=== PATIENT | female | born 1935 | race African-American/Black ===

== ENCOUNTER → 2016-07-25 | Outpatient (CLI) | payer MEDICARE, OTHER ==
[~2016-07-25] MED LIST: ALPR1TAB2 PO; BENA10TA3 PO; CLOP75TA28 PO; DEXL60CA3 PO; DICL-176 PO; LEVO75TA42 PO; MULT-777 OR; NOR10T PO; TOLT2CAP7 PO
[2016-07-25 12:44] LABS: Basophils # (auto) 0 uL; Basophils % (auto) 0.4 % (0.0-2.0); Eosinophils # (auto) 0.2 uL; Eosinophils % (auto) 3.6 % (0.0-7.0); Hematocrit 45.4 % (36.0-46.0); Hemoglobin 15.1 g/dL (12.2-16.2); Lymphocytes # (auto) 1.7 uL; Lymphocytes % (auto) 29.9 % (10.0-50.0); Mean Corpuscular Hemoglobin 32.3 pg (28.0-32.0); Mean Corpuscular Hgb Conc. 33.3 g/dL (32.0-36.0); Mean Corpuscular Volume 96.9 fL (80.0-100.0); Mean Platelet Volume 9.7 fL (7.4-10.4); Monocytes # (auto) 0.5 uL; Neutrophils # (auto) 3.2 uL; Neutrophils % (auto) 57.1 % (37.0-80.0); Platelet Count (auto) 233 10^3/uL (140-450); Red Cell Distribution Width 13.7 % (11.6-16.0); White Blood Cell 5.5 10^3/uL (4.4-10.8)
[2016-07-25 13:18] LABS: BUN/Creatinine Ratio 19.7; Bilirubin, Direct 0.2 mg/dL (0-0.2); Bilirubin, Total 0.6 mg/dL (0.2-1.0); Potassium 4.4 mmol/L (3.5-5.1); Total Protein 7.1 g/dL (6.4-8.2)
== END | disposition home or self-care (01) ==
LOC: LAB 09:58
PROVIDERS: ATTEND Internal Medicine Cardiovascular Disease
DX: I10 Essential (primary) hypertension (principal); E78.00 Pure hypercholesterolemia, unspecified; K74.1 Hepatic sclerosis; E11.9 Type 2 diabetes mellitus without complications; E03.9 Hypothyroidism, unspecified; D64.9 Anemia, unspecified; N39.0 Urinary tract infection, site not specified
CPT/HCPCS: 36415; 80048; 80061; 80076; 83036; 84436; 84443; 85025

== ENCOUNTER → 2016-11-15 | Outpatient (CLI) | payer MEDICARE, OTHER ==
[~2016-11-15] MED LIST changes: -BENA10TA3 PO; +BENA10TA9 PO
== END | disposition home or self-care (01) ==
LOC: Rad HDHVI 14:37
PROVIDERS: ATTEND Internal Medicine Cardiovascular Disease
DX: I87.9 Disorder of vein, unspecified (principal); R60.9 Edema, unspecified
CPT/HCPCS: 93970

== ENCOUNTER → 2017-04-17 | Outpatient (CLI) | payer MEDICARE, OTHER ==
[~2017-04-17] MED LIST changes: +DICL75TA2 PO; +FURO40TA PO
== END | disposition home or self-care (01) ==
LOC: Rad HDHVI 09:07
PROVIDERS: ATTEND Internal Medicine Cardiovascular Disease
DX: I50.30 Unspecified diastolic (congestive) heart failure (principal)
CPT/HCPCS: 93306

== ENCOUNTER → 2017-04-21 | Outpatient (CLI) | payer MEDICARE, OTHER ==
[~2017-04-21] VITALS: Ht 177.8 cm; Wt 127.0 kg
[~2017-04-21] MED LIST changes: +ADENOSINE 107 MG in GIVE UN-DILUTED 0 ML IV ONE; +ADENOSINE 90 MG/30 ML INJ IV ONE; -DICL75TA2 PO; -FURO40TA PO
== END ==
LOC: LAB 09:46
PROVIDERS: ATTEND Internal Medicine Cardiovascular Disease
DX: I50.33 Acute on chronic diastolic (congestive) heart failure (principal); L91.0 Hypertrophic scar
CPT/HCPCS: 78452; 93005; 96374; 96375; A9500; J0153

== ENCOUNTER → 2017-06-16 | Outpatient (CLI) | payer MEDICARE, OTHER ==
[~2017-06-16] MED LIST changes: -ADENOSINE 107 MG in GIVE UN-DILUTED 0 ML IV ONE; -ADENOSINE 90 MG/30 ML INJ IV ONE; +DICL75TA2 PO; +FURO40TA PO; +FUROSEMIDE 100 MG/10ML VIAL IV ONE; +FUROSEMIDE 40 MG/4 ML VIAL ONE
[2017-06-16 10:50] VITALS: BP 118/60
[2017-06-16 11:20] VITALS: BP 136/72
[2017-06-16 16:36] LABS: Basophils # (auto) 0 uL; Basophils % (auto) 0.8 % (0.0-2.0); Monocytes # (auto) 0.4 uL; Neutrophils # (auto) 3.7 uL
[2017-06-16 16:39] LABS: Eosinophils # (auto) 0.3 uL; Eosinophils % (auto) 4.7 % (0.0-7.0); Hematocrit 44.2 % (36.0-46.0); Hemoglobin 14.8 g/dL (12.2-16.2); Lymphocytes # (auto) 1.2 uL; Lymphocytes % (auto) 21.1 % (10.0-50.0); Mean Corpuscular Hgb Conc. 33.5 g/dL (32.0-36.0); Mean Corpuscular Volume 101.5 fL (80.0-100.0); Monocytes % (auto) 6.9 % (0.0-12.0); Neutrophils % (auto) 66.5 % (37.0-80.0); Nucleated Red Blood Cells % 0.9 %; Platelet Count (auto) 259 10^3/uL (140-450); Red Blood Cells 4.36 10^6/uL (4.0-5.20); Red Cell Distribution Width 14.2 % (11.8-14.3); White Blood Cell 5.6 10^3/uL (4.4-10.8)
[2017-06-16 17:08] LABS: Magnesium 2.6 mg/dL (1.6-2.6); Potassium 4.3 mmol/L (3.5-5.1)
== END | disposition home or self-care (01) ==
LOC: CHF HDHVI 10:58
PROVIDERS: ATTEND Internal Medicine Cardiovascular Disease
DX: D64.9 Anemia, unspecified (principal); I10 Essential (primary) hypertension; E55.9 Vitamin D deficiency, unspecified; R60.0 Localized edema
CPT/HCPCS: 36415; 80048; 82306; 83735; 85025; 96374; G0463; J1940

== ENCOUNTER → 2017-07-05 | Outpatient (CLI) | payer MEDICARE, OTHER ==
[~2017-07-05] MED LIST changes: -FUROSEMIDE 100 MG/10ML VIAL IV ONE; -FUROSEMIDE 40 MG/4 ML VIAL ONE
== END | disposition home or self-care (01) ==
LOC: Rad HDHVI 10:01
PROVIDERS: ATTEND Internal Medicine Cardiovascular Disease
DX: I73.9 Peripheral vascular disease, unspecified (principal); R60.0 Localized edema
CPT/HCPCS: 93926

== ENCOUNTER → 2017-08-01 | Outpatient (CLI) | payer MEDICARE, OTHER ==
[~2017-08-01] MED LIST changes: +cefTRIAXone 1GM/10ml IVPUSH 10 ML IV ONE
[2017-08-01 11:30] VITALS: BP 129/57
[2017-08-01 12:00] VITALS: BP 129/57
[2017-08-01 13:05] VITALS: BP 124/95
== END | disposition home or self-care (01) ==
LOC: CHF HDHVI 11:40
PROVIDERS: ATTEND Internal Medicine Cardiovascular Disease
DX: L03.115 Cellulitis of right lower limb (principal)
CPT/HCPCS: 96365; G0463

== ENCOUNTER → 2017-08-07 | Outpatient (CLI) | payer MEDICARE, OTHER ==
[~2017-08-07] MED LIST changes: -cefTRIAXone 1GM/10ml IVPUSH 10 ML IV ONE
[2017-08-07 10:30] VITALS: BP 152/65
[2017-08-07 11:20] VITALS: BP 132/67
[2017-08-07 12:06] LABS: Basophils # (auto) 0 uL; Eosinophils # (auto) 0.2 uL; Hemoglobin 14.7 g/dL (12.2-16.2); Lymphocytes # (auto) 1.2 uL; Monocytes # (auto) 0.4 uL; Neutrophils # (auto) 3.6 uL; White Blood Cell 5.4 10^3/uL (4.4-10.8)
[2017-08-07 12:11] LABS: Basophils % (auto) 0.7 % (0.0-2.0); Eosinophils % (auto) 3.7 % (0.0-7.0); Hematocrit 44.2 % (36.0-46.0); Lymphocytes % (auto) 22.4 % (10.0-50.0); Mean Corpuscular Hemoglobin 34.2 pg (28.0-32.0); Mean Corpuscular Hgb Conc. 33.3 g/dL (32.0-36.0); Mean Corpuscular Volume 102.8 fL (80.0-100.0); Neutrophils % (auto) 66.2 % (37.0-80.0); Nucleated Red Blood Cells % 0.6 %; Platelet Count (auto) 213 10^3/uL (140-450); Red Blood Cells 4.29 10^6/uL (4.0-5.20); Red Cell Distribution Width 13.7 % (11.8-14.3)
[2017-08-07 12:19] LABS: INR 0.98 (0.9-1.15); Partial Thromboplastin Time 28.2 sec (22.64-33.71); Prothrombin Time 10.7 sec (9.37-12.3)
[2017-08-07 12:24] LABS: BUN/Creatinine Ratio 14.3; Calcium 8.6 mg/dL (8.5-10.1); Potassium 4.3 mmol/L (3.5-5.1)
== END | disposition home or self-care (01) ==
LOC: Rad HDHVI 10:21
PROVIDERS: ATTEND Internal Medicine Cardiovascular Disease
DX: Z01.818 Encounter for other preprocedural examination (principal); I70.0 Atherosclerosis of aorta; I10 Essential (primary) hypertension; E78.5 Hyperlipidemia, unspecified; I12.9 Hypertensive chronic kidney disease with stage 1 through stage 4 chronic kidney disease, or unspecified chronic kidney disease; E11.22 Type 2 diabetes mellitus with diabetic chronic kidney disease; N18.3 Chronic kidney disease, stage 3 (moderate)
CPT/HCPCS: 36415; 71046; 80048; 85025; 85610; 85730; 93005; G0463

== ENCOUNTER → 2017-08-21 | Outpatient (CLI) | payer MEDICARE, OTHER ==
[~2017-08-21] MED LIST changes: -DICL-176 PO
[2017-08-21 12:00] VITALS: BP 151/92
[2017-08-21 12:35] VITALS: BP 150/90
== END | disposition home or self-care (01) ==
LOC: CHF HDHVI 11:52
PROVIDERS: ATTEND Internal Medicine Cardiovascular Disease
DX: R89.9 Unspecified abnormal finding in specimens from other organs, systems and tissues (principal); I12.9 Hypertensive chronic kidney disease with stage 1 through stage 4 chronic kidney disease, or unspecified chronic kidney disease; E11.22 Type 2 diabetes mellitus with diabetic chronic kidney disease; N18.3 Chronic kidney disease, stage 3 (moderate); E78.5 Hyperlipidemia, unspecified
CPT/HCPCS: 87205; G0463

== ENCOUNTER 2017-09-13 07:09 | Day surgery (SDC) | payer MEDICARE, OTHER ==
[2017-09-04 12:41] LABS: Basophils # (auto) 0 uL; Basophils % (auto) 0.5 % (0.0-2.0); Eosinophils # (auto) 0.3 uL; Hematocrit 43.9 % (36.0-46.0); Hemoglobin 14.4 g/dL (12.2-16.2); Lymphocytes # (auto) 1.3 uL; Lymphocytes % (auto) 25.4 % (10.0-50.0); Mean Corpuscular Hemoglobin 32.9 pg (28.0-32.0); Mean Corpuscular Hgb Conc. 32.8 g/dL (32.0-36.0); Mean Corpuscular Volume 100.3 fL (80.0-100.0); Monocytes # (auto) 0.4 uL; Monocytes % (auto) 7.9 % (0.0-12.0); Neutrophils # (auto) 3.1 uL; Neutrophils % (auto) 61.2 % (37.0-80.0); Nucleated Red Blood Cells % 0.1 %; Platelet Count (auto) 224 10^3/uL (140-450); Red Blood Cells 4.37 10^6/uL (4.0-5.20); Red Cell Distribution Width 13.6 % (11.8-14.3); White Blood Cell 5.1 10^3/uL (4.4-10.8)
[2017-09-04 12:53] LABS: INR 0.99 (0.9-1.15); Prothrombin Time 10.8 sec (9.37-12.3)
[2017-09-04 12:56] LABS: Albumin 3.7 g/dL (3.4-5.0); Potassium 4.5 mmol/L (3.5-5.1)
[2017-09-04 12:58] LABS: BUN/Creatinine Ratio 18.8
[2017-09-04 13:01] LABS: Bilirubin, Total 0.5 mg/dL (0.2-1.0); Total Protein 7.1 g/dL (6.4-8.2)
[~2017-09-13] VITALS: Ht 180.3 cm; Wt 122.5 kg
[~2017-09-13 07:09] MED LIST changes: -DEXL60CA3 PO; -DICL75TA2 PO; -FURO40TA PO; +POTA10TA34 PO; -TOLT2CAP7 PO; +TORS20TA20 PO
[2017-09-13] MEDS ORDERED: ceFAZolin 1GM/100ML 100 ML IV ONE (07:38)
[2017-09-13] MEDS ORDERED: MIDAZOLAM HCL 1MG/1ML-2 ML VIAL ONE ×3 (08:19→09:07)
[2017-09-13] MEDS ORDERED: LIDOCAINE 1% (LOCAL ANESTH.) PF 5ml SDV ONE (08:49)
[2017-09-13] MEDS ORDERED: LIDOCAINE W/ EPINEPHRINE 1% 20ML VIAL ONE (08:53)
[2017-09-13] MEDS ORDERED: PROPOFOL 10 MG/ML 20 ML IV ONE ×2 (08:56)
[2017-09-13] MEDS ORDERED: fentaNYL CITRATE 100 MCG/2 ML VL ONE (09:06)
[2017-09-13] MEDS ORDERED: MORPHINE SULFATE 4 MG/ML SYR/VIAL IV PRN (09:15)
[2017-09-13] MEDS ORDERED: ONDANSETRON HCL 4 MG/2 ML VIAL IV ONE (09:15)
[2017-09-13] MEDS ORDERED: NALOXONE HCL 0.4 MG/ML VIAL IV PRN (09:15)
[2017-09-13] MEDS ORDERED: KETAMINE HCL 1 ML ONE (09:24)
[2017-09-13 10:40] VITALS: BP 136/71
== END 2017-09-13 10:40 | disposition home or self-care (01) ==
LOC: SUR 07:09
PROVIDERS: ATTEND Surgery
DX: D05.11 Intraductal carcinoma in situ of right breast (principal); Z95.1 Presence of aortocoronary bypass graft; Z79.899 Other long term (current) drug therapy; Z79.891 Long term (current) use of opiate analgesic
CPT/HCPCS: 19120; 36415; 80053; 85025; 85610; 85730; J0690; J2250; J2704; J3010

== ENCOUNTER → 2017-09-28 | Outpatient (CLI) | payer MEDICARE, OTHER ==
[2017-09-28 12:16] LABS: Basophils # (auto) 0 uL; Basophils % (auto) 0.6 % (0.0-2.0); Eosinophils # (auto) 0.3 uL; Eosinophils % (auto) 5.4 % (0.0-7.0); Hematocrit 43.9 % (36.0-46.0); Hemoglobin 14.8 g/dL (12.2-16.2); Lymphocytes # (auto) 1.7 uL; Lymphocytes % (auto) 32.7 % (10.0-50.0); Mean Corpuscular Hgb Conc. 33.7 g/dL (32.0-36.0); Mean Corpuscular Volume 97.9 fL (80.0-100.0); Monocytes # (auto) 0.4 uL; Monocytes % (auto) 7.4 % (0.0-12.0); Neutrophils # (auto) 2.8 uL; Neutrophils % (auto) 53.9 % (37.0-80.0); Nucleated Red Blood Cells % 0.2 %; Platelet Count (auto) 208 10^3/uL (140-450); Red Blood Cells 4.48 10^6/uL (4.0-5.20); Red Cell Distribution Width 13.3 % (11.8-14.3); White Blood Cell 5.2 10^3/uL (4.4-10.8)
[2017-09-28 12:59] LABS: Albumin 4.1 g/dL (3.4-5.0); BUN/Creatinine Ratio 14.4; Bilirubin, Total 0.4 mg/dL (0.2-1.0); Calcium 9.2 mg/dL (8.5-10.1); Potassium 4.8 mmol/L (3.5-5.1); Total Protein 7.2 g/dL (6.4-8.2)
== END | disposition home or self-care (01) ==
LOC: LAB 11:41
PROVIDERS: ATTEND Internal Medicine
DX: C50.419 Malignant neoplasm of upper-outer quadrant of unspecified female breast (principal)
CPT/HCPCS: 36415; 80053; 83615; 85025

== ENCOUNTER → 2017-10-06 | Outpatient (CLI) | payer MEDICARE, OTHER ==
[~2017-10-06] MED LIST changes: +FUROSEMIDE 100 MG/10ML VIAL IV ONE; +FUROSEMIDE 40 MG/4 ML VIAL ONE; +POTASSIUM CHL 10 Meq TABLET PO ONE; +POTASSIUM CHL 20 Meq TABLET PO ONE
[2017-10-06 13:15] VITALS: BP 151/72
[2017-10-06 13:30] VITALS: BP 166/74
== END | disposition home or self-care (01) ==
LOC: CHF HDHVI 13:23
PROVIDERS: ATTEND Internal Medicine Cardiovascular Disease
DX: R60.9 Edema, unspecified (principal); L03.115 Cellulitis of right lower limb; I12.9 Hypertensive chronic kidney disease with stage 1 through stage 4 chronic kidney disease, or unspecified chronic kidney disease; E11.22 Type 2 diabetes mellitus with diabetic chronic kidney disease; N18.3 Chronic kidney disease, stage 3 (moderate); E78.5 Hyperlipidemia, unspecified; Z95.1 Presence of aortocoronary bypass graft; Z79.891 Long term (current) use of opiate analgesic; Z79.899 Other long term (current) drug therapy; Z86.73 Personal history of transient ischemic attack (TIA), and cerebral infarction without residual deficits
CPT/HCPCS: 96374; G0463; J1940

== ENCOUNTER → 2018-02-19 | Outpatient (CLI) | payer MEDICARE, OTHER ==
[~2018-02-19] MED LIST changes: -FUROSEMIDE 100 MG/10ML VIAL IV ONE; -FUROSEMIDE 40 MG/4 ML VIAL ONE; -POTA10TA34 PO; +POTA1TAB61 PO; -POTASSIUM CHL 10 Meq TABLET PO ONE; -POTASSIUM CHL 20 Meq TABLET PO ONE
[2018-02-19 11:12] LABS: Basophils # (auto) 0 uL; Basophils % (auto) 0.6 % (0.0-2.0); Eosinophils # (auto) 0.3 uL; Eosinophils % (auto) 6.3 % (0.0-7.0); Hematocrit 43.2 % (36.0-46.0); Hemoglobin 14.6 g/dL (12.2-16.2); Lymphocytes # (auto) 1.2 uL; Lymphocytes % (auto) 22.5 % (10.0-50.0); Mean Corpuscular Hemoglobin 33.1 pg (28.0-32.0); Mean Corpuscular Hgb Conc. 33.8 g/dL (32.0-36.0); Mean Corpuscular Volume 97.8 fL (80.0-100.0); Monocytes # (auto) 0.4 uL; Monocytes % (auto) 7.4 % (0.0-12.0); Neutrophils # (auto) 3.5 uL; Neutrophils % (auto) 63.2 % (37.0-80.0); Nucleated Red Blood Cells % 0.1 %; Platelet Count (auto) 223 10^3/uL (140-450); Red Blood Cells 4.42 10^6/uL (4.0-5.20); Red Cell Distribution Width 14.3 % (11.8-14.3); White Blood Cell 5.5 10^3/uL (4.4-10.8)
[2018-02-19 11:32] LABS: Potassium 4.3 mmol/L (3.5-5.1)
[2018-02-19 11:49] LABS: Albumin 3.6 g/dL (3.4-5.0); BUN/Creatinine Ratio 12.5; Bilirubin, Total 0.6 mg/dL (0.2-1.0); Total Protein 6.8 g/dL (6.4-8.2)
== END | disposition home or self-care (01) ==
LOC: LAB 09:32
PROVIDERS: ATTEND Internal Medicine
DX: C50.911 Malignant neoplasm of unspecified site of right female breast (principal)
CPT/HCPCS: 36415; 80053; 83615; 85025; 86300

== ENCOUNTER → 2018-03-12 | Outpatient (CLI) | payer MEDICARE, OTHER ==
[2018-03-12 13:03] LABS: Basophils # (auto) 0 uL; Basophils % (auto) 0.7 % (0.0-2.0); Eosinophils # (auto) 0.3 uL; Hematocrit 46.4 % (36.0-46.0); Hemoglobin 15.6 g/dL (12.2-16.2); Lymphocytes # (auto) 1.7 uL; Lymphocytes % (auto) 26.5 % (10.0-50.0); Mean Corpuscular Hemoglobin 33.6 pg (28.0-32.0); Mean Corpuscular Hgb Conc. 33.6 g/dL (32.0-36.0); Mean Corpuscular Volume 99.8 fL (80.0-100.0); Monocytes # (auto) 0.5 uL; Monocytes % (auto) 8.1 % (0.0-12.0); Neutrophils # (auto) 3.9 uL; Neutrophils % (auto) 60.7 % (37.0-80.0); Nucleated Red Blood Cells % 0.2 %; Platelet Count (auto) 245 10^3/uL (140-450); Red Blood Cells 4.65 10^6/uL (4.0-5.20); Red Cell Distribution Width 14.2 % (11.8-14.3); White Blood Cell 6.5 10^3/uL (4.4-10.8)
[2018-03-12 13:23] LABS: Potassium 4.2 mmol/L (3.5-5.1)
[2018-03-12 13:41] LABS: Free T4 (Free Thyroxine) 1.26 ng/dL (0.89-1.76)
[2018-03-12 13:47] LABS: Albumin 4.1 g/dL (3.4-5.0); BUN/Creatinine Ratio 18.2; Bilirubin, Total 0.6 mg/dL (0.2-1.0); Calcium 9.3 mg/dL (8.5-10.1); Total Protein 7.7 g/dL (6.4-8.2)
== END | disposition home or self-care (01) ==
LOC: LAB 08:24
PROVIDERS: ATTEND Internal Medicine Cardiovascular Disease
DX: Z00.01 Encounter for general adult medical examination with abnormal findings (principal); E03.9 Hypothyroidism, unspecified; E55.9 Vitamin D deficiency, unspecified; E11.9 Type 2 diabetes mellitus without complications; D51.9 Vitamin B12 deficiency anemia, unspecified
CPT/HCPCS: 36415; 80053; 80061; 82306; 82607; 83036; 84439; 84443; 85025

== ENCOUNTER → 2018-04-30 | Outpatient (CLI) | payer MEDICARE, BC | END | disposition home or self-care (01) | LOC: Rad HDHVI 11:45 | PROVIDERS: ATTEND Internal Medicine Cardiovascular Disease | DX: M48.02 Spinal stenosis, cervical region (principal); M47.812 Spondylosis without myelopathy or radiculopathy, cervical region; Z91.81 History of falling | CPT/HCPCS: 72125 ==

== ENCOUNTER → 2018-05-14 | Outpatient (CLI) | payer MEDICARE, BC ==
[2018-05-14 10:45] LABS: Basophils # (auto) 0 uL; Basophils % (auto) 0.8 % (0.0-2.0); Eosinophils # (auto) 0.5 uL; Eosinophils % (auto) 9.8 % (0.0-7.0); Hematocrit 39.4 % (36.0-46.0); Hemoglobin 13.1 g/dL (12.2-16.2); Lymphocytes # (auto) 0.9 uL; Lymphocytes % (auto) 18.2 % (10.0-50.0); Mean Corpuscular Hemoglobin 33.1 pg (28.0-32.0); Mean Corpuscular Hgb Conc. 33.2 g/dL (32.0-36.0); Mean Corpuscular Volume 99.7 fL (80.0-100.0); Monocytes # (auto) 0.5 uL; Monocytes % (auto) 8.9 % (0.0-12.0); Neutrophils # (auto) 3.2 uL; Neutrophils % (auto) 62.3 % (37.0-80.0); Nucleated Red Blood Cells % 0.1 %; Platelet Count (auto) 246 10^3/uL (140-450); Red Blood Cells 3.95 10^6/uL (4.0-5.20); Red Cell Distribution Width 14.7 % (11.8-14.3); White Blood Cell 5.1 10^3/uL (4.4-10.8)
[2018-05-14 11:41] LABS: Potassium 4.5 mmol/L (3.5-5.1)
[2018-05-14 11:55] LABS: Albumin 3.7 g/dL (3.4-5.0); BUN/Creatinine Ratio 20.3; Bilirubin, Total 0.5 mg/dL (0.2-1.0); Calcium 9.2 mg/dL (8.5-10.1); Total Protein 6.7 g/dL (6.4-8.2)
== END | disposition home or self-care (01) ==
LOC: LAB 09:53
PROVIDERS: ATTEND Internal Medicine
DX: C50.911 Malignant neoplasm of unspecified site of right female breast (principal)
CPT/HCPCS: 36415; 80053; 83615; 85025

== ENCOUNTER → 2018-08-20 | Outpatient (CLI) | payer MEDICARE, BC ==
[2018-08-20 13:32] LABS: Basophils # (auto) 0 uL; Basophils % (auto) 0.6 % (0.0-2.0); Eosinophils # (auto) 0.3 uL; Eosinophils % (auto) 5.9 % (0.0-7.0); Hematocrit 44.1 % (36.0-46.0); Hemoglobin 14.5 g/dL (12.2-16.2); Lymphocytes # (auto) 1.5 uL; Lymphocytes % (auto) 29.2 % (10.0-50.0); Mean Corpuscular Hgb Conc. 32.8 g/dL (32.0-36.0); Mean Corpuscular Volume 100.4 fL (80.0-100.0); Monocytes # (auto) 0.4 uL; Neutrophils # (auto) 2.8 uL; Neutrophils % (auto) 56.3 % (37.0-80.0); Nucleated Red Blood Cells % 0.1 %; Platelet Count (auto) 226 10^3/uL (140-450); Red Cell Distribution Width 14.6 % (11.8-14.3)
[2018-08-20 18:07] LABS: Albumin 4.4 g/dL (3.4-5.0); Calcium 9.5 mg/dL (8.5-10.1); Potassium 4.8 mmol/L (3.5-5.1)
[2018-08-20 18:11] LABS: BUN/Creatinine Ratio 18.5; Bilirubin, Total 0.5 mg/dL (0.2-1.0); Total Protein 7.2 g/dL (6.4-8.2)
== END | disposition home or self-care (01) ==
LOC: LAB 13:15
PROVIDERS: ATTEND Internal Medicine
DX: C50.911 Malignant neoplasm of unspecified site of right female breast (principal)
CPT/HCPCS: 36415; 80053; 83615; 85025; 86300

== ENCOUNTER → 2018-10-19 | Outpatient (CLI) | payer MEDICARE, BC | END | disposition home or self-care (01) | LOC: Rad HDHVI 09:59 | PROVIDERS: ATTEND Internal Medicine Cardiovascular Disease | DX: I25.10 Atherosclerotic heart disease of native coronary artery without angina pectoris (principal); R00.2 Palpitations | CPT/HCPCS: 93306 ==

== ENCOUNTER → 2018-11-19 | Outpatient (CLI) | payer MEDICARE, BC ==
[~2018-11-19] VITALS: Ht 180.3 cm; Wt 122.5 kg
[~2018-11-19] MED LIST changes: +ADENOSINE 103 MG in GIVE UN-DILUTED 0 ML IV ONE; +ADENOSINE 90 MG/30 ML INJ IV ONE
== END | disposition home or self-care (01) ==
LOC: Rad HDHVI 12:35
PROVIDERS: ATTEND Internal Medicine Cardiovascular Disease
DX: I25.10 Atherosclerotic heart disease of native coronary artery without angina pectoris (principal); E78.5 Hyperlipidemia, unspecified; R00.2 Palpitations; E66.9 Obesity, unspecified; I11.0 Hypertensive heart disease with heart failure; I50.9 Heart failure, unspecified
CPT/HCPCS: 78452; 93005; 96374; 96375; A9500; J0153

== ENCOUNTER → 2019-03-15 | Outpatient (CLI) | payer MEDICARE, BC ==
[~2019-03-15] MED LIST changes: -ADENOSINE 103 MG in GIVE UN-DILUTED 0 ML IV ONE; -ADENOSINE 90 MG/30 ML INJ IV ONE
[2019-03-15 10:03] LABS: Basophils # (auto) 0 uL; Basophils % (auto) 0.6 % (0.0-2.0); Eosinophils # (auto) 0.3 uL; Eosinophils % (auto) 6.3 % (0.0-7.0); Hematocrit 40.7 % (36.0-46.0); Hemoglobin 13.7 g/dL (12.2-16.2); Lymphocytes # (auto) 1.4 uL; Lymphocytes % (auto) 29.3 % (10.0-50.0); Mean Corpuscular Hemoglobin 33.5 pg (28.0-32.0); Mean Corpuscular Hgb Conc. 33.7 g/dL (32.0-36.0); Mean Corpuscular Volume 99.4 fL (80.0-100.0); Monocytes # (auto) 0.4 uL; Neutrophils # (auto) 2.7 uL; Neutrophils % (auto) 54.8 % (37.0-80.0); Platelet Count (auto) 186 10^3/uL (140-450); Red Blood Cells 4.09 10^6/uL (4.0-5.20); White Blood Cell 4.9 10^3/uL (4.4-10.8)
[2019-03-15 10:49] LABS: Potassium 4.9 mmol/L (3.5-5.1)
[2019-03-15 10:54] LABS: Albumin 3.8 g/dL (3.4-5.0); BUN/Creatinine Ratio 23.1; Calcium 9.4 mg/dL (8.5-10.1)
[2019-03-15 11:03] LABS: Bilirubin, Total 0.5 mg/dL (0.2-1.0); Total Protein 6.8 g/dL (6.4-8.2)
== END | disposition home or self-care (01) ==
LOC: LAB 09:38
PROVIDERS: ATTEND Internal Medicine
DX: C50.911 Malignant neoplasm of unspecified site of right female breast (principal); I10 Essential (primary) hypertension; E78.5 Hyperlipidemia, unspecified
CPT/HCPCS: 36415; 80053; 85025; 86300

== ENCOUNTER → 2019-08-23 | Outpatient (CLI) | payer MEDICARE, BC ==
[~2019-08-23] MED LIST changes: +FUROSEMIDE 100 MG/10ML VIAL IV ONE; +FUROSEMIDE 40 MG/4 ML VIAL ONE; +POTASSIUM CHL 10 Meq TABLET PO ONE; +POTASSIUM CHL 20 Meq TABLET PO ONE
[2019-08-23 11:00] VITALS: BP 135/70
[2019-08-23 11:20] VITALS: BP 136/57
[2019-08-23 16:00] LABS: Basophils # (auto) 0 10 ^3/uL (0-0.2); Basophils % (auto) 0.6 % (0.0-2.0); Eosinophils # (auto) 0.2 10 ^3/uL (0-0.8); Eosinophils % (auto) 4.2 % (0.0-7.0); Hematocrit 42.2 % (36.0-46.0); Hemoglobin 14.1 g/dL (12.2-16.2); Lymphocytes # (auto) 1.2 10 ^3/uL (0.4-5.4); Lymphocytes % (auto) 21.5 % (10.0-50.0); Mean Corpuscular Hemoglobin 32.8 pg (28.0-32.0); Mean Corpuscular Hgb Conc. 33.3 g/dL (32.0-36.0); Mean Corpuscular Volume 98.3 fL (80.0-100.0); Monocytes # (auto) 0.4 10 ^3/uL (0-1.3); Monocytes % (auto) 6.9 % (0.0-12.0); Neutrophils # (auto) 3.6 10 ^3/uL (1.6-8.6); Neutrophils % (auto) 66.8 % (37.0-80.0); Nucleated Red Blood Cells % 0.1 %; Platelet Count (auto) 226 10^3/uL (140-450); Red Blood Cells 4.29 10^6/uL (4.0-5.20); Red Cell Distribution Width 14.1 % (11.8-14.3); White Blood Cell 5.4 10^3/uL (4.4-10.8)
[2019-08-23 16:23] LABS: Potassium 4.6 mmol/L (3.5-5.1)
[2019-08-23 16:31] LABS: Free T4 (Free Thyroxine) 1.4 ng/dL (0.89-1.76)
[2019-08-23 16:32] LABS: Albumin 3.5 g/dL (3.4-5.0); BUN/Creatinine Ratio 21.9; Bilirubin, Total 0.5 mg/dL (0.2-1.0); Calcium 9.3 mg/dL (8.5-10.1); Total Protein 6.3 g/dL (6.4-8.2)
== END | disposition home or self-care (01) ==
LOC: CHF HDHVI 10:38
PROVIDERS: ATTEND Internal Medicine Cardiovascular Disease
DX: I10 Essential (primary) hypertension (principal); E03.9 Hypothyroidism, unspecified; K90.9 Intestinal malabsorption, unspecified; E78.5 Hyperlipidemia, unspecified; Z79.899 Other long term (current) drug therapy
CPT/HCPCS: 36415; 80053; 80061; 82306; 82607; 83036; 84403; 84439; 85025; 96374; G0463; J1940

== ENCOUNTER → 2019-08-26 | Outpatient (CLI) | payer MEDICARE, BC ==
[~2019-08-26] MED LIST changes: -FUROSEMIDE 100 MG/10ML VIAL IV ONE; -FUROSEMIDE 40 MG/4 ML VIAL ONE; -POTASSIUM CHL 10 Meq TABLET PO ONE; -POTASSIUM CHL 20 Meq TABLET PO ONE
== END | disposition home or self-care (01) ==
LOC: Rad HDHVI 11:00
PROVIDERS: ATTEND Internal Medicine Cardiovascular Disease
DX: I25.10 Atherosclerotic heart disease of native coronary artery without angina pectoris (principal); I11.0 Hypertensive heart disease with heart failure; I50.23 Acute on chronic systolic (congestive) heart failure
CPT/HCPCS: 93306

== ENCOUNTER → 2019-08-30 | Outpatient (CLI) | payer MEDICARE, BC ==
[~2019-08-30] VITALS: Ht 180.3 cm; Wt 120.2 kg
[~2019-08-30] MED LIST changes: +ADENOSINE 101 MG in GIVE UN-DILUTED 0 ML IV ONE; +ADENOSINE 90 MG/30 ML INJ IV ONE
== END | disposition home or self-care (01) ==
LOC: Rad HDHVI 09:15
PROVIDERS: ATTEND Internal Medicine Cardiovascular Disease
DX: I10 Essential (primary) hypertension (principal); I25.10 Atherosclerotic heart disease of native coronary artery without angina pectoris
CPT/HCPCS: 78452; 93005; 96374; 96375; A9500; J0153

== ENCOUNTER → 2019-11-08 | Outpatient (CLI) | payer MEDICARE, BC ==
[~2019-11-08] MED LIST changes: -ADENOSINE 101 MG in GIVE UN-DILUTED 0 ML IV ONE; -ADENOSINE 90 MG/30 ML INJ IV ONE; +FUROSEMIDE 100 MG/10ML VIAL IV ONE; +FUROSEMIDE 20 MG/2 ML VIAL ONE; +FUROSEMIDE INJECTION 10 ML ONE; +POTASSIUM CHL 10 Meq TABLET PO ONE; +POTASSIUM CHL 20 Meq TABLET PO ONE
[2019-11-08 10:15] VITALS: BP 121/44
--- NOTE | 2019-11-08 10:15 | NUR ---
PT ARRIVED TO [facility] PT ARRIVED TO [facility] CLINIC FROM B/O WITH ORDERS. PT IS ALERT AND AWAKE, ON ROOM AIR, WITH EVEN AND UNLABORED RESPIRATIONS. PT AMBULATING WITH STEADY GAIT WITH USE OF WALKER. VVS. WILL CARRY OUT MD ORDERS.
--- NOTE | 2019-11-08 10:35 | NUR ---
IV insertion IV access obtained by this RN, via clean sterile technique by inserting butterfly catheter at [L wrist] after [1] attempt(s). IV secured properly. No trauma to site. Patient tolerated well. labs drawn and ordered meds will be administered.
--- NOTE | 2019-11-08 10:51 | NUR ---
IV removal IV DC'd by this RN with sterile technique, butterfly catheter fully intact. Pressure dressing applied to site. Patient tolerated procedure well. Discharged with aftercare instructions per MD.
[2019-11-08 10:55] VITALS: BP 108/51
--- NOTE | 2019-11-08 10:55 | NUR ---
[facility] Discharge Instructions See e-MAR for any mediations given with this visit. Patient education given on disease process. Patient verbalized understanding. Previous labs reviewed. Patient discharged in stable condition with after care instructions and follow up appointment. NOTES LASIX IVP ADMIN BY DIAZ PATRICK POTASSIUM PO ADMIN BY DIAZ PATRICK
[2019-11-08 12:09] LABS: Calcium 9.1 mg/dL (8.5-10.1); Potassium 4.6 mmol/L (3.5-5.1)
[2019-11-08 12:11] LABS: BUN/Creatinine Ratio 21.2
== END | disposition home or self-care (01) ==
LOC: CHF HDHVI 10:28
PROVIDERS: ATTEND Internal Medicine Cardiovascular Disease
DX: I11.0 Hypertensive heart disease with heart failure (principal); I50.22 Chronic systolic (congestive) heart failure; I25.10 Atherosclerotic heart disease of native coronary artery without angina pectoris; E78.5 Hyperlipidemia, unspecified; E03.9 Hypothyroidism, unspecified; Z79.899 Other long term (current) drug therapy
CPT/HCPCS: 36415; 80048; 96374; G0463; J1940

== ENCOUNTER → 2019-11-22 | Outpatient (CLI) | payer MEDICARE, BC ==
[~2019-11-22] MED LIST changes: +BUMETANIDE 1mg/4ml VIAL (0.25mg/ml) ONE; +BUMETANIDE 2.5mg/10ml (0.25 mg/ml) INJ IV ONE; -FUROSEMIDE 100 MG/10ML VIAL IV ONE; -FUROSEMIDE 20 MG/2 ML VIAL ONE; -FUROSEMIDE INJECTION 10 ML ONE; -POTASSIUM CHL 10 Meq TABLET PO ONE; -POTASSIUM CHL 20 Meq TABLET PO ONE
[2019-11-22 10:06] VITALS: BP 134/60
[2019-11-22 10:32] VITALS: BP 126/45
== END | disposition home or self-care (01) ==
LOC: CHF HDHVI 10:04
PROVIDERS: ATTEND Internal Medicine Cardiovascular Disease
DX: I11.0 Hypertensive heart disease with heart failure (principal); I50.22 Chronic systolic (congestive) heart failure; I25.10 Atherosclerotic heart disease of native coronary artery without angina pectoris; R60.9 Edema, unspecified; E78.5 Hyperlipidemia, unspecified; E03.9 Hypothyroidism, unspecified; Z79.899 Other long term (current) drug therapy
CPT/HCPCS: 96374; G0463; J3490

== ENCOUNTER → 2019-12-20 | Outpatient (CLI) | payer MEDICARE, BC ==
[~2019-12-20] MED LIST changes: -BUMETANIDE 1mg/4ml VIAL (0.25mg/ml) ONE; -BUMETANIDE 2.5mg/10ml (0.25 mg/ml) INJ IV ONE
[2019-12-20 16:21] LABS: BUN/Creatinine Ratio 14.2; Calcium 9.6 mg/dL (8.5-10.1); Potassium 4.3 mmol/L (3.5-5.1)
[2019-12-20 16:29] LABS: INR 1.02 (0.9-1.15); Partial Thromboplastin Time 28.9 sec (23.0-31.2)
[2019-12-20 17:21] LABS: Basophils # (auto) 0 10 ^3/uL (0-0.2); Basophils % (auto) 0.6 % (0.0-2.0); Eosinophils # (auto) 0.2 10 ^3/uL (0-0.8); Eosinophils % (auto) 3.5 % (0.0-7.0); Hematocrit 44.3 % (36.0-46.0); Hemoglobin 14.6 g/dL (12.2-16.2); Lymphocytes # (auto) 1.6 10 ^3/uL (0.4-5.4); Lymphocytes % (auto) 26.9 % (10.0-50.0); Mean Corpuscular Hemoglobin 32.5 pg (28.0-32.0); Mean Corpuscular Hgb Conc. 32.9 g/dL (32.0-36.0); Mean Corpuscular Volume 98.8 fL (80.0-100.0); Monocytes # (auto) 0.5 10 ^3/uL (0-1.3); Monocytes % (auto) 9.1 % (0.0-12.0); Neutrophils # (auto) 3.6 10 ^3/uL (1.6-8.6); Neutrophils % (auto) 59.9 % (37.0-80.0); Nucleated Red Blood Cells % 0.3 %; Platelet Count (auto) 218 10^3/uL (140-450); Red Blood Cells 4.48 10^6/uL (4.0-5.20); Red Cell Distribution Width 13.1 % (11.8-14.3); White Blood Cell 6.1 10^3/uL (4.4-10.8)
== END | disposition home or self-care (01) ==
LOC: LAB 12:42
PROVIDERS: ATTEND Internal Medicine Cardiovascular Disease
DX: Z01.812 Encounter for preprocedural laboratory examination (principal); E11.22 Type 2 diabetes mellitus with diabetic chronic kidney disease; I12.9 Hypertensive chronic kidney disease with stage 1 through stage 4 chronic kidney disease, or unspecified chronic kidney disease; N18.3 Chronic kidney disease, stage 3 (moderate)
CPT/HCPCS: 36415; 80048; 85025; 85610; 85730

== ENCOUNTER 2020-04-14 23:59 | Inpatient (IN) | payer MEDICARE, BC ==
[~2020-04-14] VITALS: Ht 177.8 cm; Wt 108.0 kg
[~2020-04-14 23:59] MED LIST changes: -MULT-777 OR; +MULT-777 PO
[2020-04-15] MEDS ORDERED: ACETAMINOPHEN 325 MG TAB PO ONE (02:00)
[2020-04-15] MEDS ORDERED: SODIUM CHLORIDE 0.9% 1,000 ML IV ONE (02:00)
[2020-04-15 03:31] LABS: Basophils # (auto) 0.1 10 ^3/uL (0-0.2); Basophils % (auto) 2.8 % (0.0-2.0); Eosinophils # (auto) 0 10 ^3/uL (0-0.8); Eosinophils % (auto) 0.2 % (0.0-7.0); Hematocrit 45.5 % (36.0-46.0); Hemoglobin 15.6 g/dL (12.2-16.2); Lymphocytes # (auto) 0.5 10 ^3/uL (0.4-5.4); Lymphocytes % (auto) 17.4 % (10.0-50.0); Mean Corpuscular Hemoglobin 32.8 pg (28.0-32.0); Mean Corpuscular Hgb Conc. 34.3 g/dL (32.0-36.0); Mean Corpuscular Volume 95.7 fL (80.0-100.0); Monocytes # (auto) 0.4 10 ^3/uL (0-1.3); Monocytes % (auto) 15.6 % (0.0-12.0); Neutrophils # (auto) 1.7 10 ^3/uL (1.6-8.6); Nucleated Red Blood Cells % 0.2 %; Platelet Count (auto) 156 10^3/uL (140-450); Red Blood Cells 4.75 10^6/uL (4.0-5.20); Red Cell Distribution Width 13.9 % (11.8-14.3); White Blood Cell 2.7 10^3/uL (4.4-10.8)
[2020-04-15 03:45] LABS: INR 1.02 (0.9-1.15); Partial Thromboplastin Time 34.5 sec (23.0-31.2)
[2020-04-15 03:53] LABS: Albumin 2.9 g/dL (3.4-5.0); Anion Gap 6 (5-15); Blood Urea Nitrogen 19 mg/dL (7-18); Calcium 8.4 mg/dL (8.5-10.1); Carbon Dioxide 25 mmol/L (21-32); Chloride 105 mmol/L (98-107); Glucose 88 mg/dL (74-106); Magnesium 2.1 mg/dL (1.6-2.6); Potassium 4.1 mmol/L (3.5-5.1); Sodium 136 mmol/L (136-145)
[2020-04-15 04:03] LABS: Alanine Aminotransferase 18 U/L (13-56); Alkaline Phosphatase 60 U/L (45-117); Aspartate Aminotransferase 33 U/L (15-37); BUN/Creatinine Ratio 16.1; Bilirubin, Total 0.5 mg/dL (0.2-1.0); GFR African American 56 mL/min; GFR Non-African American 46 mL/min; Total Protein 6.1 g/dL (6.4-8.2)
[2020-04-15] MEDS ORDERED: levoFLOXacin 750MG 150 ML IV ONE (04:15)
[2020-04-15] MEDS ORDERED: MORPHINE SULF INJ 2 MG/ML SYRINGE 1ML IV PRN (10:45)
[2020-04-15] MEDS ORDERED: NITROGLYCERIN 0.4 MG SL TAB SL PRN (10:45)
[2020-04-15] MEDS ORDERED: DOBUTamine 1000MCG/ML 250 ML IV SCH (10:45)
[2020-04-15] MEDS ORDERED: REMDESIVIR PER PHARMACY 0 ML IV SCH (10:45)
[2020-04-15] MEDS ORDERED: BENA40TA83 PO (14:30)
[2020-04-15] MEDS ORDERED: POTA10TA32 PO (14:30)
[2020-04-15] MEDS ORDERED: OXYB5TAB61 PO (14:30)
[2020-04-15] MEDS ORDERED: FURO40TA4 PO (14:30)
[2020-04-15] MEDS ORDERED: REMDESIVIR 200 MG in NS 210ml LOADING DOSE ADULT IV ONE (15:00)
[2020-04-15 21:26] LABS: Urine Bacteria NONE SEEN /hpf (None Seen); Urine Blood Negative /uL (Negative); Urine Mucus FEW (None Seen); Urine Specific Gravity 1.014 (1.001-1.035); Urine WBC <1 /hpf (0 - 5)
[2020-04-15 22:00] VITALS: BP 139/75
[2020-04-15 22:32] VITALS: BP 139/75
[2020-04-15] MEDS: OXYBUTYNIN CHL 5 MG TAB PO SCH (22:50)
[2020-04-15] MEDS: HYDROcodone-ACET 10/325MG TAB PO PRN (23:15)
[2020-04-16 04:47] VITALS: BP 121/48
[2020-04-16] MEDS: LEVOTHYROXINE SODIUM 50 MCG TAB PO SCH (06:14)
[2020-04-16 06:25] LABS: Potassium 4.4 mmol/L (3.5-5.1)
[2020-04-16 06:50] LABS: Albumin 2.4 g/dL (3.4-5.0); BUN/Creatinine Ratio 14.4; Bilirubin, Total 0.4 mg/dL (0.2-1.0); Calcium 8.4 mg/dL (8.5-10.1); Total Protein 5.6 g/dL (6.4-8.2)
[2020-04-16 09:00] VITALS: BP 126/57
[2020-04-16] MEDS: CLOPIDOGREL BISULFATE 75 MG TAB PO SCH (09:17)
[2020-04-16] MEDS: AZITHROMYCIN 500MG/ 250ML 250 ML IV SCH (09:17)
[2020-04-16] MEDS: ZINC SULFATE 220mg CAP or TAB PO SCH (09:17)
[2020-04-16] MEDS: OXYBUTYNIN CHL 5 MG TAB PO SCH ×2 (09:17→21:18)
[2020-04-16] MEDS: POTASSIUM CHL 20 Meq TABLET PO SCH (09:17)
[2020-04-16] MEDS: FUROSEMIDE 40 MG/4 ML VIAL IV SCH (09:17)
[2020-04-16] MEDS: CHOLECALCIFEROL (VITD3) 2,000 UNIT CAP PO SCH (09:18)
[2020-04-16] MEDS: ASCORBIC ACID 500 MG TAB PO SCH (09:18)
[2020-04-16] MEDS: HYDROcodone-ACET 10/325MG TAB PO PRN ×2 (09:18→20:27)
[2020-04-16] MEDS ORDERED: REMDESIVIR PER PHARMACY 0 ML IV SCH (09:30)
[2020-04-16] MEDS ORDERED: ACETAMINOPHEN 325 MG TAB PO PRN (12:45)
[2020-04-16 13:00] VITALS: BP 95/58
[2020-04-16] MEDS: DexAMETHasone SOD PHOS 10MG/1ML VIAL INJ IV SCH (15:24)
[2020-04-16] MEDS: REMDESIVIR 100 MG in SODIUM CHL 0.9% 250 ML IV SCH (15:24)
[2020-04-16 17:00] VITALS: BP 132/64
[2020-04-16 22:00] VITALS: BP 120/72
[2020-04-17 05:00] VITALS: BP 125/69
[2020-04-17] MEDS: LEVOTHYROXINE SODIUM 50 MCG TAB PO SCH (06:24)
[2020-04-17 08:45] LABS: Albumin 2.2 g/dL (3.4-5.0); Calcium 8.3 mg/dL (8.5-10.1); Potassium 4.2 mmol/L (3.5-5.1)
[2020-04-17 08:51] LABS: BUN/Creatinine Ratio 22.6; Bilirubin, Total 0.4 mg/dL (0.2-1.0); Total Protein 5.2 g/dL (6.4-8.2)
[2020-04-17 09:00] VITALS: BP 114/76
[2020-04-17] MEDS: DexAMETHasone SOD PHOS 10MG/1ML VIAL INJ IV SCH (09:58)
[2020-04-17] MEDS: OXYBUTYNIN CHL 5 MG TAB PO SCH ×2 (09:59→21:07)
[2020-04-17] MEDS: CLOPIDOGREL BISULFATE 75 MG TAB PO SCH (09:59)
[2020-04-17] MEDS: POTASSIUM CHL 20 Meq TABLET PO SCH (09:59)
[2020-04-17] MEDS: FUROSEMIDE 40 MG/4 ML VIAL IV SCH (09:59)
[2020-04-17] MEDS: ZINC SULFATE 220mg CAP or TAB PO SCH (09:59)
[2020-04-17] MEDS: CHOLECALCIFEROL (VITD3) 2,000 UNIT CAP PO SCH (10:00)
[2020-04-17] MEDS: ASCORBIC ACID 500 MG TAB PO SCH (10:00)
[2020-04-17] MEDS: AZITHROMYCIN 500MG/ 250ML 250 ML IV SCH (11:04)
[2020-04-17 13:00] VITALS: BP 102/65
[2020-04-17] MEDS: REMDESIVIR 100 MG in SODIUM CHL 0.9% 250 ML IV SCH (16:40)
[2020-04-17 17:00] VITALS: BP 102/58
[2020-04-17 20:00] VITALS: BP 101/55
[2020-04-17] MEDS: HYDROcodone-ACET 10/325MG TAB PO PRN ×2 (21:08→21:12)
[2020-04-18 06:13] VITALS: BP 108/58
[2020-04-18] MEDS: LEVOTHYROXINE SODIUM 50 MCG TAB PO SCH (06:26)
[2020-04-18 09:00] VITALS: BP 115/69
[2020-04-18 10:25] LABS: Potassium 4.5 mmol/L (3.5-5.1)
[2020-04-18 10:49] LABS: Albumin 2.4 g/dL (3.4-5.0); BUN/Creatinine Ratio 27.4; Bilirubin, Total 0.5 mg/dL (0.2-1.0); Calcium 9.1 mg/dL (8.5-10.1); Total Protein 5.6 g/dL (6.4-8.2)
[2020-04-18] MEDS: POTASSIUM CHL 20 Meq TABLET PO SCH (11:30)
[2020-04-18] MEDS: DexAMETHasone SOD PHOS 10MG/1ML VIAL INJ IV SCH (11:30)
[2020-04-18] MEDS: CHOLECALCIFEROL (VITD3) 2,000 UNIT CAP PO SCH (11:30)
[2020-04-18] MEDS: AZITHROMYCIN 500MG/ 250ML 250 ML IV SCH (11:30)
[2020-04-18] MEDS: CLOPIDOGREL BISULFATE 75 MG TAB PO SCH (11:30)
[2020-04-18] MEDS: FUROSEMIDE 40 MG/4 ML VIAL IV SCH (11:30)
[2020-04-18] MEDS: ZINC SULFATE 220mg CAP or TAB PO SCH (11:30)
[2020-04-18] MEDS: ASCORBIC ACID 500 MG TAB PO SCH (11:30)
[2020-04-18] MEDS: OXYBUTYNIN CHL 5 MG TAB PO SCH ×2 (11:30→22:03)
[2020-04-18 12:47] VITALS: BP 120/68
[2020-04-18] MEDS: REMDESIVIR 100 MG in SODIUM CHL 0.9% 250 ML IV SCH (15:35)
[2020-04-18 17:00] VITALS: BP 130/51
[2020-04-18] MEDS: ALPRAZolam 0.5 MG TAB PO PRN (18:30)
[2020-04-18 22:00] VITALS: BP 113/64
[2020-04-18] MEDS: HYDROcodone-ACET 10/325MG TAB PO PRN ×2 (22:04→23:49)
[2020-04-19 05:00] VITALS: BP 101/66
[2020-04-19] MEDS: LEVOTHYROXINE SODIUM 50 MCG TAB PO SCH (06:34)
[2020-04-19 06:44] LABS: Albumin 2.3 g/dL (3.4-5.0); Potassium 4.3 mmol/L (3.5-5.1)
[2020-04-19 06:47] LABS: BUN/Creatinine Ratio 32.3; Bilirubin, Total 0.4 mg/dL (0.2-1.0); Total Protein 5.3 g/dL (6.4-8.2)
[2020-04-19 08:00] VITALS: BP 125/72
[2020-04-19 12:00] VITALS: BP 108/57
[2020-04-19] MEDS: DexAMETHasone SOD PHOS 10MG/1ML VIAL INJ IV SCH (12:15)
[2020-04-19] MEDS: AZITHROMYCIN 500MG/ 250ML 250 ML IV SCH (12:17)
[2020-04-19] MEDS: FUROSEMIDE 40 MG/4 ML VIAL IV SCH (12:17)
[2020-04-19] MEDS: OXYBUTYNIN CHL 5 MG TAB PO SCH ×2 (12:18→21:05)
[2020-04-19] MEDS: POTASSIUM CHL 20 Meq TABLET PO SCH (12:18)
[2020-04-19] MEDS: ZINC SULFATE 220mg CAP or TAB PO SCH (12:18)
[2020-04-19] MEDS: ASCORBIC ACID 500 MG TAB PO SCH (12:19)
[2020-04-19] MEDS: CLOPIDOGREL BISULFATE 75 MG TAB PO SCH (12:19)
[2020-04-19] MEDS: CHOLECALCIFEROL (VITD3) 2,000 UNIT CAP PO SCH (12:19)
[2020-04-19 13:43] LABS: Basophils # (auto) 0 10 ^3/uL (0-0.2); Eosinophils # (auto) 0 10 ^3/uL (0-0.8); Hemoglobin 13.5 g/dL (12.2-16.2); Lymphocytes # (auto) 0.4 10 ^3/uL (0.4-5.4); Mean Corpuscular Hemoglobin 32.2 pg (28.0-32.0); Mean Corpuscular Hgb Conc. 33.8 g/dL (32.0-36.0); Mean Corpuscular Volume 95.1 fL (80.0-100.0); Monocytes # (auto) 0.4 10 ^3/uL (0-1.3); Monocytes % (auto) 7.5 % (0.0-12.0); Neutrophils # (auto) 4.2 10 ^3/uL (1.6-8.6); Neutrophils % (auto) 83.5 % (37.0-80.0); Nucleated Red Blood Cells % 0.1 %; Platelet Count (auto) 281 10^3/uL (140-450); Red Cell Distribution Width 13.4 % (11.8-14.3)
[2020-04-19 17:00] VITALS: BP 120/56
[2020-04-19] MEDS: LACTULOSE 20Gm/30ML SOLN PO PRN (18:59)
[2020-04-19] MEDS: HYDROcodone-ACET 10/325MG TAB PO PRN (21:05)
[2020-04-19 22:00] VITALS: BP 112/70
[2020-04-19] MEDS: ALPRAZolam 0.5 MG TAB PO PRN (23:11)
[2020-04-20] MEDS: REMDESIVIR 100 MG in SODIUM CHL 0.9% 250 ML IV SCH (00:52)
[2020-04-20] MEDS: LEVOTHYROXINE SODIUM 50 MCG TAB PO SCH (06:54)
[2020-04-20] MEDS: DexAMETHasone SOD PHOS 10MG/1ML VIAL INJ IV SCH (11:35)
[2020-04-20] MEDS: FUROSEMIDE 40 MG/4 ML VIAL IV SCH (11:35)
[2020-04-20] MEDS: AZITHROMYCIN 500MG/ 250ML 250 ML IV SCH (11:37)
[2020-04-20] MEDS: ZINC SULFATE 220mg CAP or TAB PO SCH (11:37)
[2020-04-20] MEDS: ASCORBIC ACID 500 MG TAB PO SCH (11:38)
[2020-04-20] MEDS: CLOPIDOGREL BISULFATE 75 MG TAB PO SCH (11:38)
[2020-04-20] MEDS: POTASSIUM CHL 20 Meq TABLET PO SCH (11:38)
[2020-04-20] MEDS: OXYBUTYNIN CHL 5 MG TAB PO SCH ×2 (11:38→22:19)
[2020-04-20] MEDS: CHOLECALCIFEROL (VITD3) 2,000 UNIT CAP PO SCH (11:38)
[2020-04-20 12:00] VITALS: BP 124/63
[2020-04-20 17:00] VITALS: BP 116/67
[2020-04-20] MEDS: HYDROcodone-ACET 10/325MG TAB PO PRN (20:33)
[2020-04-20 21:30] VITALS: BP 110/67
[2020-04-20] MEDS: DOXYCYCLINE 100 MG TAB/CAP PO SCH (22:19)
[2020-04-21 05:00] VITALS: BP 114/68
[2020-04-21] MEDS: LACTULOSE 20Gm/30ML SOLN PO PRN (07:00)
[2020-04-21] MEDS: LEVOTHYROXINE SODIUM 50 MCG TAB PO SCH (07:00)
[2020-04-21] MEDS: OXYBUTYNIN CHL 5 MG TAB PO SCH ×2 (09:35→23:07)
[2020-04-21] MEDS: POTASSIUM CHL 20 Meq TABLET PO SCH (09:35)
[2020-04-21] MEDS: FUROSEMIDE 40 MG/4 ML VIAL IV SCH (09:35)
[2020-04-21] MEDS: cefTRIAXone 1GM/50ML D5W 50 ML IV SCH (09:35)
[2020-04-21] MEDS: DexAMETHasone SOD PHOS 10MG/1ML VIAL INJ IV SCH (09:35)
[2020-04-21] MEDS: DOXYCYCLINE 100 MG TAB/CAP PO SCH ×2 (09:35→23:07)
[2020-04-21] MEDS: ZINC SULFATE 220mg CAP or TAB PO SCH (09:35)
[2020-04-21] MEDS: CHOLECALCIFEROL (VITD3) 2,000 UNIT CAP PO SCH (09:35)
[2020-04-21] MEDS: ASCORBIC ACID 500 MG TAB PO SCH (09:35)
[2020-04-21] MEDS: CLOPIDOGREL BISULFATE 75 MG TAB PO SCH (09:35)
[2020-04-21] MEDS: HYDROcodone-ACET 10/325MG TAB PO PRN (23:17)
[2020-04-22] VITALS: BP 125/76
[2020-04-22] MEDS: LEVOTHYROXINE SODIUM 50 MCG TAB PO SCH (06:04)
[2020-04-22 09:00] VITALS: BP 120/64
[2020-04-22] MEDS: cefTRIAXone 1GM/50ML D5W 50 ML IV SCH (10:16)
[2020-04-22] MEDS: CLOPIDOGREL BISULFATE 75 MG TAB PO SCH (10:17)
[2020-04-22] MEDS: OXYBUTYNIN CHL 5 MG TAB PO SCH ×2 (10:17→21:52)
[2020-04-22] MEDS: DOXYCYCLINE 100 MG TAB/CAP PO SCH ×2 (10:17→21:52)
[2020-04-22] MEDS: POTASSIUM CHL 20 Meq TABLET PO SCH (10:17)
[2020-04-22] MEDS: ASCORBIC ACID 500 MG TAB PO SCH (10:17)
[2020-04-22] MEDS: DexAMETHasone SOD PHOS 10MG/1ML VIAL INJ IV SCH (10:17)
[2020-04-22] MEDS: FUROSEMIDE 40 MG/4 ML VIAL IV SCH (10:17)
[2020-04-22] MEDS: CHOLECALCIFEROL (VITD3) 2,000 UNIT CAP PO SCH (10:18)
[2020-04-22] MEDS: ZINC SULFATE 220mg CAP or TAB PO SCH (10:18)
[2020-04-22 13:00] VITALS: BP 108/68
[2020-04-22 14:01] LABS: Basophils # (auto) 0 10 ^3/uL (0-0.2); Eosinophils # (auto) 0 10 ^3/uL (0-0.8); Eosinophils % (auto) 0.4 % (0.0-7.0); Hematocrit 44.6 % (36.0-46.0); Hemoglobin 15.4 g/dL (12.2-16.2); Lymphocytes # (auto) 0.5 10 ^3/uL (0.4-5.4); Lymphocytes % (auto) 6.5 % (10.0-50.0); Mean Corpuscular Hemoglobin 32.3 pg (28.0-32.0); Mean Corpuscular Hgb Conc. 34.4 g/dL (32.0-36.0); Mean Corpuscular Volume 93.7 fL (80.0-100.0); Monocytes # (auto) 0.4 10 ^3/uL (0-1.3); Monocytes % (auto) 4.4 % (0.0-12.0); Neutrophils # (auto) 7.3 10 ^3/uL (1.6-8.6); Neutrophils % (auto) 88.7 % (37.0-80.0); Nucleated Red Blood Cells % 0.1 %; Platelet Count (auto) 391 10^3/uL (140-450); Red Blood Cells 4.76 10^6/uL (4.0-5.20); Red Cell Distribution Width 13.5 % (11.8-14.3); White Blood Cell 8.3 10^3/uL (4.4-10.8)
[2020-04-22 14:24] LABS: Albumin 2.8 g/dL (3.4-5.0); BUN/Creatinine Ratio 35.1; Calcium 9.3 mg/dL (8.5-10.1); Potassium 4.7 mmol/L (3.5-5.1)
[2020-04-22 14:27] LABS: Bilirubin, Total 0.5 mg/dL (0.2-1.0); Total Protein 6.1 g/dL (6.4-8.2)
[2020-04-22 16:00] VITALS: BP 123/71
[2020-04-22] MEDS: HYDROcodone-ACET 10/325MG TAB PO PRN (19:50)
[2020-04-23] VITALS: BP 90/56
[2020-04-23] MEDS: LEVOTHYROXINE SODIUM 50 MCG TAB PO SCH (06:55)
[2020-04-23 09:00] VITALS: BP 117/77
[2020-04-23] MEDS: FUROSEMIDE 40 MG/4 ML VIAL IV SCH (09:41)
[2020-04-23] MEDS: ZINC SULFATE 220mg CAP or TAB PO SCH (09:41)
[2020-04-23] MEDS: DexAMETHasone SOD PHOS 10MG/1ML VIAL INJ IV SCH (09:41)
[2020-04-23] MEDS: cefTRIAXone 1GM/50ML D5W 50 ML IV SCH (09:41)
[2020-04-23] MEDS: DOXYCYCLINE 100 MG TAB/CAP PO SCH ×2 (09:42→22:34)
[2020-04-23] MEDS: POTASSIUM CHL 20 Meq TABLET PO SCH (09:42)
[2020-04-23] MEDS: CHOLECALCIFEROL (VITD3) 2,000 UNIT CAP PO SCH (09:42)
[2020-04-23] MEDS: ASCORBIC ACID 500 MG TAB PO SCH (09:42)
[2020-04-23] MEDS: OXYBUTYNIN CHL 5 MG TAB PO SCH ×2 (09:42→22:34)
[2020-04-23] MEDS: CLOPIDOGREL BISULFATE 75 MG TAB PO SCH (09:42)
[2020-04-23] MEDS: HYDROcodone-ACET 10/325MG TAB PO PRN (19:36)
[2020-04-24] VITALS: BP 120/73
[2020-04-24] MEDS: LACTULOSE 20Gm/30ML SOLN PO PRN (01:08)
[2020-04-24] MEDS: LEVOTHYROXINE SODIUM 50 MCG TAB PO SCH (06:54)
[2020-04-24 08:00] VITALS: BP 109/64
[2020-04-24] MEDS: cefTRIAXone 1GM/50ML D5W 50 ML IV SCH (09:12)
[2020-04-24] MEDS: DexAMETHasone SOD PHOS 10MG/1ML VIAL INJ IV SCH (10:16)
[2020-04-24] MEDS: FUROSEMIDE 40 MG/4 ML VIAL IV SCH (10:16)
[2020-04-24] MEDS: ZINC SULFATE 220mg CAP or TAB PO SCH (10:17)
[2020-04-24] MEDS: ASCORBIC ACID 500 MG TAB PO SCH (10:17)
[2020-04-24] MEDS: POTASSIUM CHL 20 Meq TABLET PO SCH (10:17)
[2020-04-24] MEDS: OXYBUTYNIN CHL 5 MG TAB PO SCH ×2 (10:17→22:00)
[2020-04-24] MEDS: CLOPIDOGREL BISULFATE 75 MG TAB PO SCH (10:17)
[2020-04-24] MEDS: DOXYCYCLINE 100 MG TAB/CAP PO SCH ×2 (10:17→22:00)
[2020-04-24] MEDS: CHOLECALCIFEROL (VITD3) 2,000 UNIT CAP PO SCH (10:18)
[2020-04-24] MEDS: HYDROcodone-ACET 10/325MG TAB PO PRN (18:04)
[2020-04-24 21:36] VITALS: BP 103/72
[2020-04-25] MEDS ORDERED: ONDANSETRON HCL 4 MG/2 ML VIAL IV PRN (02:15)
[2020-04-25] MEDS: HYDROcodone-ACET 10/325MG TAB PO PRN ×2 (05:20→18:17)
[2020-04-25] MEDS: LEVOTHYROXINE SODIUM 50 MCG TAB PO SCH (06:36)
[2020-04-25 08:00] VITALS: BP 117/58
[2020-04-25] MEDS: DexAMETHasone SOD PHOS 10MG/1ML VIAL INJ IV SCH (09:41)
[2020-04-25] MEDS: cefTRIAXone 1GM/50ML D5W 50 ML IV SCH (09:41)
[2020-04-25] MEDS: ZINC SULFATE 220mg CAP or TAB PO SCH (09:44)
[2020-04-25] MEDS: CLOPIDOGREL BISULFATE 75 MG TAB PO SCH (09:44)
[2020-04-25] MEDS: FUROSEMIDE 40 MG/4 ML VIAL IV SCH (09:44)
[2020-04-25] MEDS: OXYBUTYNIN CHL 5 MG TAB PO SCH ×2 (09:44→21:07)
[2020-04-25] MEDS: DOXYCYCLINE 100 MG TAB/CAP PO SCH ×2 (09:45→21:06)
[2020-04-25] MEDS: CHOLECALCIFEROL (VITD3) 2,000 UNIT CAP PO SCH (09:47)
[2020-04-25] MEDS: ASCORBIC ACID 500 MG TAB PO SCH (09:47)
[2020-04-25] MEDS: POTASSIUM CHL 20 Meq TABLET PO SCH (10:08)
[2020-04-25 16:00] VITALS: BP 119/63
[2020-04-25] MEDS: ALPRAZolam 0.5 MG TAB PO PRN (21:07)
[2020-04-26] VITALS: BP 114/66
[2020-04-26] MEDS: HYDROcodone-ACET 10/325MG TAB PO PRN (02:56)
[2020-04-26] MEDS: LEVOTHYROXINE SODIUM 50 MCG TAB PO SCH (06:14)
[2020-04-26 08:00] VITALS: BP 123/64
[2020-04-26] MEDS: DexAMETHasone SOD PHOS 10MG/1ML VIAL INJ IV SCH (10:48)
[2020-04-26] MEDS: cefTRIAXone 1GM/50ML D5W 50 ML IV SCH (10:48)
[2020-04-26] MEDS: FUROSEMIDE 40 MG/4 ML VIAL IV SCH (10:49)
[2020-04-26] MEDS: OXYBUTYNIN CHL 5 MG TAB PO SCH (10:49)
[2020-04-26] MEDS: ZINC SULFATE 220mg CAP or TAB PO SCH (10:49)
[2020-04-26] MEDS: POTASSIUM CHL 20 Meq TABLET PO SCH (10:49)
[2020-04-26] MEDS: DOXYCYCLINE 100 MG TAB/CAP PO SCH (10:50)
[2020-04-26] MEDS: CLOPIDOGREL BISULFATE 75 MG TAB PO SCH (10:50)
[2020-04-26] MEDS: CHOLECALCIFEROL (VITD3) 2,000 UNIT CAP PO SCH (10:50)
[2020-04-26] MEDS: ASCORBIC ACID 500 MG TAB PO SCH (10:50)
[2020-04-26 13:47] VITALS: BP 123/64
[2020-04-26 16:00] VITALS: BP 114/70
[2020-04-27] MEDS ORDERED: TIMOLOL MALEATE OP SCH (10:00)
[2020-04-27] MEDS ORDERED: BRIMONIDINE TARTRATE OP SCH (10:00)
== END 2020-04-26 17:30 | disposition home or self-care (01) | DRG 871 ==
LOC: EDBD 23:59 → ER 04-15 00:03 → TELE 04-15 00:04 → TELE-WESTW 04-15 22:42
PROVIDERS: ADMIT Internal Medicine Cardiovascular Disease; ATTEND Internal Medicine Cardiovascular Disease
PROC: XW033E5 Introduction of Remdesivir Anti-infective into Peripheral Vein, Percutaneous Approach, New Technology Group 5 (ICD-10-PCS; principal; 2020-04-16)
DX: A41.89 Other specified sepsis (principal); U07.1 COVID-19; J12.89 Other viral pneumonia; J44.1 Chronic obstructive pulmonary disease with (acute) exacerbation; I50.32 Chronic diastolic (congestive) heart failure; J44.0 Chronic obstructive pulmonary disease with (acute) lower respiratory infection; I11.0 Hypertensive heart disease with heart failure; E78.5 Hyperlipidemia, unspecified; I25.10 Atherosclerotic heart disease of native coronary artery without angina pectoris; I70.0 Atherosclerosis of aorta; Z95.1 Presence of aortocoronary bypass graft
CPT/HCPCS: 36415; 36600; 71045; 80053; 81001; 82805; 83605; 83735; 83880; 84132; 84484; 85025; 85379; 85610; 85730; 87040; 87426; 96361; 96365; 96367; 97110; 97116; 97163; 97530; G0378; J0696; J1100; J1956; J2405

== ENCOUNTER 2020-08-11 05:20 | Emergency (ER) | payer MEDICARE, BC ==
[~2020-08-11] VITALS: Ht 157.5 cm; Wt 113.4 kg
[~2020-08-11 05:20] MED LIST changes: -BENA10TA9 PO; +BENA40TA83 PO; +FURO40TA4 PO; +OXYB5TAB61 PO; +POTA10TA32 PO; -POTA1TAB61 PO; -TORS20TA20 PO
[2020-08-11] MEDS ORDERED: EPINEPHrine HCL 1 MG/10 ML SYRG IV ONE (05:21)
[2020-08-11] MEDS ORDERED: DEXTROSE (50%) 50ML SYRG IV ONE (05:21)
== END 2020-08-11 05:34 ==
LOC: ER 05:20 → EDBD 05:20 → ER 05:34
DX: I46.9 Cardiac arrest, cause unspecified (principal); I25.10 Atherosclerotic heart disease of native coronary artery without angina pectoris; Z79.899 Other long term (current) drug therapy; Z90.49 Acquired absence of other specified parts of digestive tract
CPT/HCPCS: 31500; 92950; 99285; J0171; J7042